=== PATIENT | female | born 1980 | race African-American/Black ===

== ENCOUNTER → 2019-12-21 | Emergency (ER) | payer MEDICAID ==
[~2019-12-21] VITALS: Ht 162.6 cm; Wt 75.7 kg
[~2019-12-21] MED LIST: IBUPROFEN600 MG ORAL; Ketorolac 30mg Inj IV ONE
--- NOTE | 2019-12-21 21:00 | NUR ---
ED Nurse Note: Recieved pt BIBA from home with c/o chest pain for 1 day, started with cough x 3 days, pt rates pain at 10/10, no sob or labored breathing, pt also states her son is in hospital for PNA, pt denies any other pain or discomforts, pt immediately gowned and ekg done, placed on cardiac monitoring also, will resume care as ordered and closely monitor.
--- NOTE | 2019-12-21 21:05 | Emergency Room Report ---
History of Present Illness General Chief Complaint: Chest Pain Source: Patient Present Illness HPI This is a 39-year-old female with no past medical history she presents with complaint chest pain. Pain is diffuse across the chest. Worse with movement. Worse with coughing. She has runny nose and congestion. She said it started this morning. Pain is diffuse in nature. 8 out of 10. No fever chills but no nausea no vomiting. She said she had this before and was diagnosed with pneumonia in the past. Allergies: Coded Allergies: No Known Allergies (Unverified , 12/21/19) Patient History Past Medical History: see triage record, old chart reviewed, asthma Past Surgical History: none Pertinent Family History: none Now: No Immunizations: other Reviewed Nursing Documentation: PMH: Agreed; PSxH: Agreed Nursing Documentation-PMH Hx Asthma: Yes Review of Systems Eye: Denies: eye pain, blurred vision ENT: Reports: nose congestion; Denies: ear pain, throat swelling Respiratory: Denies: cough, shortness of breath Cardiovascular: Reports: chest pain; Denies: palpitations Gastrointestinal: Denies: abdominal pain, diarrhea, nausea, vomiting Musculoskeletal: Denies: back pain, joint pain Skin: Denies: rash Neurological: Denies: headache, numbness Endocrine: Denies: increased thirst, increased urine Hematologic/Lymphatic: Denies: easy bruising All Other Systems: negative except mentioned in HPI Physical Exam Vital Signs Date Time Temp Pulse Resp B/P (MAP) Pulse Ox O2 Delivery O2 Flow Rate FiO2 12/21/19 20:45 98.6 66 18 120/84 (96) 96 Room Air Vitals normal Sp02 EP Interpretation: reviewed, normal General Appearance: well appearing, no apparent distress, alert Head: normocephalic, atraumatic Eyes: bilateral eye PERRL, bilateral eye EOMI ENT: hearing grossly normal, normal pharynx Neck: full range of motion, supple, no meningismus Respiratory: chest non-tender, lungs clear, normal breath sounds Cardiovascular #1: regular rate, rhythm, no murmur Gastrointestinal: normal bowel sounds, non tender, no mass, no organomegaly, no bruit, non-distended Musculoskeletal: back normal, normal range of motion, gait/station normal Psychiatric: anxious Medical Decision Making Diagnostic Impression: Primary Impression: Chest pain Qualified Codes: R07.9 - Chest pain, unspecified ER Course Patient with none [place] chest pain. No evidence of ACS, PE, dissection to name a few. EKG normal. Troponin negative. Her pain is been ongoing for more than 6 hours. Lungs are clear. Oxygenation is 100 percent. No evidence of pneumonia. EKG Diagnostic Results Rate: normal Rhythm: NSR ST Segments: no acute changes Rhythm Strip Diag. Results EP Interpretation: yes Rate: 65 Rhythm: NSR, no PVC's, no ectopy Last Vital Signs Date Time Temp Pulse Resp B/P (MAP) Pulse Ox O2 Delivery O2 Flow Rate FiO2 12/21/19 20:45 98.6 66 18 120/84 (96) 96 Room Air Status: improved Disposition: HOME, SELF-CARE Condition: Stable Scripts Ibuprofen* (MOTRIN*) 600 Mg Tablet 600 MG ORAL THREE TIMES A DAY, #30 TAB 0 Refills Prov: Enoch Cunningham MD 12/21/19 Patient Instructions: Nonspecific Chest Pain Additional Instructions: Follow-up with your doctor in 7 days. Return if symptoms worsen. Enoch Cunningham MD Dec 21, 2019 21:05
[2019-12-21 22:00] VITALS: BP 126/77
--- NOTE | 2019-12-21 22:00 | NUR ---
ED Nurse Note: Meds given for pain effective, pt sleeping, arouses easily to verbal stimuli, remains on cardiac monitoring in NSR, will continue to monitor and prepare for disposition, pt labs are negative.
--- NOTE | 2019-12-21 22:30 | NUR ---
ER DISCHARGE NOTE: Patient is cleared to be discharged per ERMD, pt is aox4, on room air, with stable vital signs. pt was given dc and prescription instructions, pt was able to verbalize understanding, pt id band and iv site removed without complications. pt is able to ambulate with steady gait. pt took all belongings.pt spouse present to drive her home.
[2019-12-21 22:32] VITALS: BP 126/77
== END | disposition home or self-care (01) ==
LOC: EDBD 20:54 → EMR 22:30
DX: R07.9 Chest pain, unspecified (principal)
CPT/HCPCS: 84484; 93005; 96374; J1885; Z7502; 99284